=== PATIENT | male | born 1950 | race Two or more races ===

== ENCOUNTER 2017-02-10 23:39 | Emergency (ER) | payer OTHER ==
[~2017-02-10] VITALS: Ht 170.2 cm; Wt 77.1 kg
[~2017-02-10 23:39] MED LIST: GLIM1TAB2 PO; METF-312 PO
[2017-02-11] VITALS (11 sets, daily range): BP systolic 58–177; BP diastolic 17–107
[2017-02-11] MEDS ORDERED: NOREPINEPHRINE BITARTRATE 250 ML IV ONE (00:15)
[2017-02-11] MEDS ORDERED: ETOMIDATE (2MG/ML) 20ML VIAL IV ONE (00:22)
[2017-02-11] MEDS ORDERED: SUCCINYLCHOLINE CHLORIDE 20 MG/ML 10ML VIAL IV ONE (00:22)
[2017-02-11] MEDS ORDERED: NOREPINEPHRINE BITARTRATE 250 ML IV SCH ×2 (00:30→01:15)
[2017-02-11] MEDS ORDERED: HETASTARCH 500 ML IV ONE (00:30)
[2017-02-11] MEDS ORDERED: PANTOPRAZOLE SODIUM 40 MG/10 ML VIAL IV ONE ×2 (00:30→03:11)
[2017-02-11] MEDS ORDERED: MIDAZOLAM DRIP 100 mg/100mL NS 100 ML IV SCH (00:33)
[2017-02-11 00:37] LABS: Basophils # (auto) 0.2 uL; Basophils % (auto) 2.1 % (0.0-2.0); DEFINITIVE VIEW TRANSMISSION; Eosinophils # (auto) 0.3 uL; Eosinophils % (auto) 2.7 % (0.0-7.0); Hematocrit 22.3 % (41.0-53.0); Lymphocytes # (auto) 3.5 uL; Lymphocytes % (auto) 30.4 % (10.0-50.0); Mean Corpuscular Hemoglobin 26.9 pg (28.0-32.0); Mean Corpuscular Hgb Conc. 31.5 g/dL (32.0-36.0); Mean Corpuscular Volume 85.5 fL (80.0-100.0); Mean Platelet Volume 7.8 fL (7.4-10.4); Monocytes # (auto) 0.7 uL; Monocytes % (auto) 6.1 % (0.0-12.0); Neutrophils # (auto) 6.8 uL; Neutrophils % (auto) 58.7 % (37.0-80.0); Platelet Count (auto) 249 10^3/uL (140-450); Red Cell Distribution Width 17.3 % (11.6-16.0); White Blood Cell 11.5 10^3/uL (4.4-10.8)
[2017-02-11 00:55] LABS: Partial Thromboplastin Time 26.4 sec (22.64-33.71)
[2017-02-11 00:57] LABS: INR 1.37 (0.9-1.15); Prothrombin Time 14.1 sec (9.37-12.3)
[2017-02-11] MEDS ORDERED: SODIUM BICARBONATE 8.4 % INJ 50ML VIAL IV ONE (01:00)
[2017-02-11 01:03] LABS: Albumin 2.2 g/dL (3.4-5.0); BUN/Creatinine Ratio 23.5; Calcium 7.3 mg/dL (8.5-10.1); Potassium 4.3 mmol/L (3.5-5.1)
[2017-02-11 01:06] LABS: Lactic Acid 5.2 mmol/L (0.4-2.0)
[2017-02-11 01:08] LABS: Bilirubin, Total 0.7 mg/dL (0.2-1.0); Total Protein 4.7 g/dL (6.4-8.2)
[2017-02-11 01:11] LABS: REFLEX LACTIC ACID YES OR NO YES
[2017-02-11 01:53] LABS: B-Type Natriuretic Peptide 121.77 pg/mL (0-100); Temperature: 22.3 C (20.0-25.0)
[2017-02-11] MEDS ORDERED: ONDANSETRON HCL 4 MG/2 ML VIAL ONE (02:12)
[2017-02-11] MEDS ORDERED: PHYTONADIONE (VIT K)10 MG/ML 1ML VIAL ONE (02:25)
[2017-02-11 02:34] LABS: Lactic Acid 11.4 mmol/L (0.4-2.0)
[2017-02-11 02:36] LABS: REFLEX LACTIC ACID YES OR NO NO
[2017-02-11] MEDS ORDERED: PHYTONADIONE (VIT K)10 MG/ML 1ML VIAL SUBCUT ONE (02:45)
[2017-02-11] MEDS ORDERED: PANTOPRAZOLE SODIUM 80 MG in SODIUM CHL 0.9% 60 ML IV SCH (03:00)
[2017-02-11] MEDS ORDERED: VASOPRESSIN 50 UNITS in SODIUM CHL 0.9% 247.5 ML IV SCH (03:00)
[2017-02-11] MEDS ORDERED: VASOPRESSIN 20 UNIT/ML ONE (03:02)
[2017-02-11] MEDS ORDERED: OCTREOTIDE ACETATE 500 MCG in SODIUM CHL 0.9% 99 ML IV SCH (03:15)
[2017-02-11] MEDS ORDERED: CALCIUM GLUC 4.65 MEQ/10ML IV ONE (03:15)
[2017-02-11] MEDS ORDERED: ONDANSETRON HCL 4 MG/2 ML VIAL IV ONE (03:15)
[2017-02-11] MEDS ORDERED: cefTRIAXone 1GM/50ML D5W 50 ML IV ONE (03:30)
[2017-02-11] MEDS ORDERED: VASOPRESSIN 50 UNITS in SODIUM CHL 0.9% 247.5 ML IV ONE (03:30)
[2017-02-11] MEDS ORDERED: CALCIUM GLUC 4.65 MEQ/10ML 4.65 MEQ in SODIUM CHL 0.9% 50 ML IV ONE (03:45)
[2017-02-11] MEDS ORDERED: PIPERACILLIN-TAZOB 3.375GM 100 ML IV ONE (03:45)
[2017-02-11] MEDS ORDERED: VANCOMYCIN 1GM/250ML D5W 250 ML IV ONE (03:45)
== END 2017-02-11 04:38 | disposition short-term general hospital (02) ==
LOC: ER 23:46
DX: A41.9 Sepsis, unspecified organism (principal); J96.00 Acute respiratory failure, unspecified whether with hypoxia or hypercapnia; D50.0 Iron deficiency anemia secondary to blood loss (chronic); K92.2 Gastrointestinal hemorrhage, unspecified; K72.90 Hepatic failure, unspecified without coma; E11.9 Type 2 diabetes mellitus without complications
CPT/HCPCS: 31500; 36415; 36600; 51702; 71010; 74176; 80053; 82140; 82270; 82805; 82962; 83605; 83735; 83880; 84484; 85025; 85379; 85384; 85610; 85730; 86850; 86900; 86901; 86920; 87040; 93005; 94002; 96365; 96366; 96368; 99291; C9113; J0330; J0610; J0696; J2405; J2543; J3370; J3430; J3490; J7050; P9016; P9017; 36430